=== PATIENT | female | born 1935 | race Caucasian/White ===

== ENCOUNTER 2016-08-27 12:13 | Inpatient (IN) | payer OTHER ==
[~2016-08-27] VITALS: Ht 170.2 cm; Wt 66.9 kg
[2016-08-27 12:53] LABS: HEMATOCRIT 39.7 % (36.0-46.0); MCH 29.7 PG (29.0-34.0); MCHC 32.7 G/DL (30.0-36.0); MCV 90.6 FL (83-99); MEAN PLAT.VOLUME 9.2 uM^3 (9.5-12.4); PLATELET COUNT 237 K/uL (156-360); RBC DIS.WIDTH-SD 42.3 % (39-53); RED BLOOD COUNT 4.38 M/uL (3.80-5.20); WHITE BLOOD COUNT 10.6 K/uL (4.1-10.2)
[2016-08-27 13:05] LABS: CHLORIDE 101 mEq/L (99-109); POTASSIUM 3.8 mEq/L (3.7-5.4); SODIUM 137 mEq/L (136-147)
[2016-08-27 13:06] LABS: GLUCOSE 126 mg/dL (70-99)
[2016-08-27 13:07] LABS: D-DIMER ELISA 0.43 mg/L FEU (< 0.57)
[2016-08-27 13:08] LABS: ANION GAP 10 MEQ/L (2-14)
[2016-08-27 13:10] LABS: GFR ESTIMATE (CALCULATED) > 59 mL/min/
[2016-08-27 13:11] LABS: UREA NITROGEN (BUN) 23 mg/dL (9-23)
[2016-08-27 13:15] LABS: TROP-I INTERPRETATION NEGATIVE; TROPONIN-I < 0.01 ng/mL (0.0-0.30)
[2016-08-27 13:49] LABS: BASE EXCESS 3.8 mEq/L (-3 to +3); BICARBONATE 28.5 mEq/L (22-26); CARBOXY HGB 1.6 % (0-5); METHEMOGLOBIN 1.5 % (0-1.5); PCO2 42 mm Hg (35-45); PO2 73 mm Hg (80-100); pH 7.44 (7.35-7.45)
[2016-08-27 13:50] LABS: SITE LR
[2016-08-27 13:51] LABS: COMMENTS - BLOOD GASES NEG A+C+; DEVICE NC; O2 FLOW 4 L/MIN; TOTAL RESP RATE 28 resp/min
[2016-08-27] MEDS ORDERED: FOLIC ACID1 MG PO (15:17)
[2016-08-27] MEDS ORDERED: LEVO-T125 MCG PO (15:17)
[2016-08-27] MEDS ORDERED: ADVAIR 250/501 DISK IH (15:18)
[2016-08-27] MEDS ORDERED: TRAVATAN Z5 ML BOTH EYES (15:18)
[2016-08-27] MEDS ORDERED: PREDNISONE10 MG PO (15:21)
[2016-08-27] MEDS ORDERED: PRAVASTATIN SOD20 MG PO (15:21)
[2016-08-27] MEDS ORDERED: METOPROLOL SUCC25 MG PO (15:22)
[2016-08-27] MEDS ORDERED: AZULFIDINE500 MG PO (15:23)
[2016-08-27] MEDS ORDERED: HYDROXYCHLOROQ200 MG PO (15:23)
[2016-08-27] MEDS ORDERED: COMBIVENT RESPIM4 GM IH (15:24)
[2016-08-27] MEDS ORDERED: LEUCOVORIN CALCI5 MG PO (15:24)
[2016-08-27 18:33] VITALS: BP 132/62
[2016-08-27 23:30] VITALS: BP 108/55
[2016-08-28 07:36] VITALS: BP 134/61
[2016-08-28 15:50] VITALS: BP 144/65
[2016-08-28 23:24] VITALS: BP 130/61
[2016-08-29 09:10] VITALS: BP 120/59
[2016-08-29 16:38] VITALS: BP 124/80
[2016-08-29] MEDS ORDERED: LEVAQUIN500 MG PO (17:54)
[2016-08-29] MEDS ORDERED: DUONEB 2.5-0.5 M3 ML AEROSOL ×2 (17:54)
[2016-08-29] MEDS ORDERED: MYCOSTATIN 100,60 ML PO (17:54)
[2016-08-29] MEDS ORDERED: AERONEB GO NEB1 EACH MC (17:54)
[2016-08-29] MEDS ORDERED: PREDNISONE10 MG PO ×2 (18:18)
== END 2016-08-29 20:33 | disposition home or self-care (01) | DRG 190 ==
LOC: EME 12:13 → 5EAST 14:58 → EDOF 14:58 → 5EAST 17:55
PROVIDERS: Emergency Medicine
DX: J44.1 Chronic obstructive pulmonary disease with (acute) exacerbation (principal); J96.21 Acute and chronic respiratory failure with hypoxia; I10 Essential (primary) hypertension; M06.9 Rheumatoid arthritis, unspecified; J44.0 Chronic obstructive pulmonary disease with (acute) lower respiratory infection; E03.9 Hypothyroidism, unspecified; Z87.891 Personal history of nicotine dependence; I25.9 Chronic ischemic heart disease, unspecified; J20.9 Acute bronchitis, unspecified; Z99.81 Dependence on supplemental oxygen
CPT/HCPCS: 36600; 71020; 71250; 80048; 82803; 84484; 85027; 85379; 87040; 87070; 87205; 93005; 94640; 94640 76; 94799; 99202; 99281; 99284; J1650; J1956; J2930; J7512

== ENCOUNTER → 2017-11-24 | Outpatient (CLI) | payer OTHER ==
[~2017-11-24] MED LIST: ADVAIR 250/501 DISK IH; AERONEB GO NEB1 EACH MC; AZULFIDINE500 MG PO; COMBIVENT RESPIM4 GM IH; DUONEB 2.5-0.5 M3 ML AEROSOL; FOLIC ACID1 MG PO; HYDROXYCHLOROQ200 MG PO; LEUCOVORIN CALCI5 MG PO; LEVAQUIN500 MG PO; LEVO-T125 MCG PO; METOPROLOL SUCC25 MG PO; MYCOSTATIN 100,60 ML PO; PRAVASTATIN SOD20 MG PO; PREDNISONE10 MG PO; TRAVATAN Z5 ML BOTH EYES
== END | disposition home or self-care (01) ==
LOC: NUC 11:30 → RAD 11:31 → NUC 11:31
DX: R91.8 Other nonspecific abnormal finding of lung field (principal)
CPT/HCPCS: 71046; 78582; A9540; A9567